=== PATIENT | female | born 2000 | race Caucasian/White ===

== ENCOUNTER 2019-03-22 13:14 | Emergency (ER) | payer OTHER, SELFPAY ==
[2019-03-22 13:22] VITALS: BP 104/63; PULSE 103; RESP 15; TEMP 37.4; O2SAT 97; BMI 20.7
--- NOTE | 2019-03-22 13:38 | ED_ITS ---
HPI - URI/Sore Throat <Kristine Cali PA-C - Last Filed: 03/22/19 19:43> General Chief Complaint: Upper Respiratory Symptoms Stated Complaint: MIGHT HAVE STREP Time Seen by Provider: 03/22/19 13:19 Source: patient and family Mode of arrival: ambulatory Limitations: no limitations History of Present Illness HPI Narrative: This 18-year-old female comes in due to concern for recurrent strep throat. She states she had some chills onset a few days ago with a little bit of achiness all over and mild sore throat, then developed some headache. She states sore throat has worsened and she looked last night and noticed 1 sore enlarged tonsil with pus on it. Mom states she has felt warm but no temperature taken (she was traveling back from college and just got home). She states probably multiple exposures at school, nonspecific though that she knows of. She denies any cough or wheeze. She is able to swallow. She denies any rash. Denies any recent travel. No other symptoms such as GI upset or vomiting. Denies possibility of . She had strep throat and influenza last month but was feeling completely well prior to onset of this. Related Data Home Medications Medication Instructions Recorded Confirmed ALBUTEROL SULFATE (Ventolin / 1 - 2 puff INH PRN #0 02/15/11 Proventil) Previous Rx's Medication Instructions Recorded dextroamphetamine-amphetamine 10 mg PO QAM #30 tab 06/15/16 [Adderall] citalopram 20 mg PO QDAY #30 tab 12/22/16 lidocaine HCl [Lidocaine Viscous] 10 ml PO Q3-4H PRN #150 ml 03/22/19 Allergies Allergy/AdvReac Type Severity Reaction Status Date / Time amoxicillin [AMOXICILLIN] Allergy Unknown Unverified 02/27/18 12:10 diphenhydramine Allergy Verified 03/22/19 13:22 [From Benadryl] Review of Systems <Kristine Cali PA-C - Last Filed: 03/22/19 19:43> Review of Systems ROS Unobtainable: All systems reviewed & are unremarkable except as noted in HPI and below PFSH <Kristine Cali PA-C - Last Filed: 03/22/19 19:43> Medical History (Updated 03/22/19 @ 14:05 by Kristine Cali PA-C) Reactive airways dysfunction syndrome (Chronic) Attention deficit hyperactivity disorder (ADHD), combined type (Chronic) Major depressive disorder, recurrent episode, in partial remission with anxious distress (Chronic) SVT (supraventricular tachycardia) (Chronic) Anemia (Chronic) Social History (Updated 03/22/19 @ 13:37 by Kristine Cali PA-C) Smoking Status: Never smoker Social History (Updated 03/22/19 @ 13:37 by Kristine Cali PA-C) Smoking Status: Never smoker Exam <Kristine Cali PA-C - Last Filed: 03/22/19 19:43> Narrative Exam Narrative: GENERAL APPEARANCE: Patient sitting comfortably, in no distress. HEAD: No sinus TTP. EYES: PERRL, EOMI. EARS: Normal auditory canals, TMS intact with normal light reflexes. ORAL CAVITY: Normal oropharynx. THROAT: Erythematous, left tonsil is enlarged and erythematous more than the right, no exudate NECK/THYROID: Neck supple, full range of motion, shoddy anterior cervical lymphadenopathy and a few small posterior nodesb. LUNGS: Clear to auscultation bilaterally, no cough on exam. HEART: RRR without murmur, nl S1, S2, no S3 or S4. DERMATOLOGIC: No exanthem Initial Vital Signs Initial Vital Signs: Vital Signs Temperature 99.3 F 03/22/19 13:22 Pulse Rate 103 H 03/22/19 13:22 Respiratory Rate 15 03/22/19 13:22 Blood Pressure 104/63 03/22/19 13:22 Pulse Oximetry 97 03/22/19 13:22 <DO Delfino Gautam Last Filed: 03/25/19 00:46> Initial Vital Signs Initial Vital Signs: Vital Signs Temperature 99.3 F 03/22/19 13:22 Pulse Rate 103 H 03/22/19 13:22 Respiratory Rate 15 03/22/19 13:22 Blood Pressure 104/63 03/22/19 13:22 Pulse Oximetry 97 03/22/19 13:22 Course <Kristine Cali PA-C - Last Filed: 03/22/19 19:43> Vital Signs - 8 hr 03/22/19 13:22 Temperature 99.3 F Pulse Rate 103 H Respiratory Rate 15 Blood Pressure 104/63 Pulse Oximetry 97 <DO Delfino Gautam Last Filed: 03/25/19 00:46> Vital Signs - 8 hr 03/22/19 13:22 Temperature 99.3 F Pulse Rate 103 H Respiratory Rate 15 Blood Pressure 104/63 Pulse Oximetry 97 MDM - URI/Sore Throat <Kristine Cali PA-C - Last Filed: 03/22/19 19:43> Lab Data Attestation: I reviewed the patient's lab results. Point of Care Testing Rapid Strep A Negative <Nata Palafox DO - Last Filed: 03/25/19 00:46> Lab Data Point of Care Testing Rapid Strep A Negative Discharge Plan Departure Patient Disposition: Home Clinical Impression: Pharyngitis Qualifiers: Pharyngitis/tonsillitis etiology: unspecified etiology Qualified Code(s): J02.9 - Acute pharyngitis, unspecified Discharge Date/Time: 03/22/19 14:12 Interventions: ED Discharge Assessment Last Done: 03/22/19 14:12 Instructions: DI for Pharyngitis/Tonsillopharyngitis -- Adult Activity Restrictions/Additional Instructions: Please return as we talked about if you have acutely worsening symptoms such as being unable to swallow or manage secretions due to throat swelling, difficulty breathing, or persistent high fever. Otherwise, please take efin-hdu-lesphoo ibuprofen 6-800 mg every 8 hours to help with throat pain and fever. I have prescribed some lidocaine rinse to use as well to help the pain, and you can use fioh-ifo-wdkeelp lozenges such as Cepacol. Please follow-up with your PCP if you are not getting better by next week. Prescriptions: New lidocaine HCl [Lidocaine Viscous] 2 % solution 10 ml PO Q3-4H PRN (Reason: mouth pain) Qty: 150 RF: 0 No Action ALBUTEROL SULFATE (Ventolin / Proventil) 1 - 2 puff INH PRN Qty: 0 RF: 0 dextroamphetamine-amphetamine [Adderall] 10 MG tablet 10 mg PO QAM Qty: 30 RF: 0 citalopram 20 MG tablet 20 mg PO QDAY Qty: 30 RF: 3 [facility]errals: [facility] [Provider Group] <Nata Palafox DO - Last Filed: 03/25/19 00:46> Cosign ED Attending Cosignature Attestation: I was immediately available in the department for consultation. Documentation has been reviewed. I agree with asse ssment and plan.
== END 2019-03-22 14:12 | disposition home or self-care (01) ==
PROVIDERS: Emergency Provider Internal Medicine
DX: J02.9 Acute pharyngitis, unspecified (principal)
CPT/HCPCS: 87880; 99282; 99283

== ENCOUNTER → 2021-11-22 14:29 | Outpatient (CLI) | payer OTHER, SELFPAY ==
[2021-11-22 16:01] LABS: COVID19 -Nasal RAPID Negative (Negative)
== END ==
PROVIDERS: Referring Provider Physician Assistant; Visit Provider Physician Assistant
DX: Z20.822 Contact with and (suspected) exposure to COVID-19 (principal)
CPT/HCPCS: 87635